=== PATIENT | female | born 1990 | race Caucasian/White ===

== ENCOUNTER 2022-09-13 10:37 | Emergency (ER) | payer OTHER, SELFPAY ==
--- NOTE | 2022-09-13 10:38 | ED.EYEPROB ---
HPI - Eye Problem General Chief complaint: Eye Problems Stated complaint: COLD/EYE REDNESS/DISCHARGE Time Seen by Provider: 09/13/22 10:39 Source: patient and RN notes reviewed History of Present Illness HPI Narrative: Patient is a 31-year-old female presents to urgent care with complaints of bilateral eye redness, discharge and itchiness. Patient states that it started yesterday but she has had cold-like symptoms with cough and runny nose for 3 days. Patient has been taking Sudafed for symptom relief. Denies any new products to the face. Denies any eye injury. Patient states that she does not were contacts. Denies any vision change. No other acute complaints. No acute distress noted. Patient aware of the plan of care. Some parts of this dictation were generated by voice recognition software and may contain typographical and/or grammatical inaccuracies. Related Data Home Medications Medication Instructions Recorded Confirmed buspirone 5 mg tablet 5 mg PO TID 09/13/22 09/13/22 rosuvastatin 5 mg tablet 5 mg PO DAILY 09/13/22 09/13/22 valacyclovir 1 gram tablet 1,000 mg PO DAILY 09/13/22 09/13/22 Allergies Allergy/AdvReac Type Severity Reaction Status Date / Time sulfamethoxazole Allergy Rash Verified 09/13/22 10:57 [From Bactrim] trimethoprim [From Bactrim] Allergy Rash Verified 09/13/22 10:57 Review of Systems Review of Systems: CONSTITUTIONAL: Denies fever, chills, or sweats. EYES: Reports bilateral eye discharge, redness and itchiness ENT: Reports of nasal congestion, rhinorrhea and postnasal drainage CARDIOVASCULAR: Denies chest pain, palpitations, or edema. RESPIRATORY: Reports cough without dyspnea GASTROINTESTINAL: Denies abdominal pain, nausea, vomiting, or diarrhea. GENITOURINARY: Denies dysuria or hematuria. SKIN: Denies rash or itching. MUSCULOSKELETAL: Denies back pain, joint pain, or myalgia. NEUROLOGIC: Denies headache, numbness, or weakness. All other systems reviewed are negative, except as documented in HPI. PMFSH Comments At the time of my signature, I reviewed and agree with the nursing past medical, surgical, social, and family history. There is no relevant family history pertinent to the patient complaint. Exam Narrative: GENERAL: This is a well-nourished, well-developed patient, in no apparent distress. HEAD: normocephalic, atraumatic. EYES: PERRL. Mild erythema to bilateral Sclera. Vision is grossly intact. Mild injected conjunctiva bilaterally with clear yellow drainage more notable to the left. Mild left upper eyelid edema/erythema EARS: External ears normal, auditory canals clear and without drainage, TMs normal without perforation. Hearing grossly intact. NOSE: External nose normal with no obvious nasal discharge, nares without redness, clear rhinorrhea. THROAT: Mucous membranes moist, posterior pharynx clear. Mild postnasal drainage NECK: Neck supple RESPIRATORY: Clear to auscultation. Breath sounds equal bilaterally. No wheezes, rales, or rhonchi. GASTROINTESTINAL: Abdomen soft, non-tender, nondistended. Bowel sounds are active. No hepato-splenomegaly, or palpable masses. No guarding. SKIN: warm, intact with no suspicious lesions or rash, good texture and turgor. NEURO: awake, alert, and oriented to person, place and time. There were no obvious focal neurologic abnormalities. EXTREMITIES: No clubbing, cyanosis, or edema. Course Course Level of Care: Express Care Visit Vital Signs Vital signs: Vital Signs Oxygen Delivery Room Air 09/13/22 10:45 Temperature 97.6 F 09/13/22 10:46 Pulse Rate 100 09/13/22 10:46 Respiratory Rate 20 09/13/22 10:46 Blood Pressure 124/85 09/13/22 10:46 Pulse Oximetry 100 09/13/22 10:46 Oxygen Delivery Room Air 09/13/22 10:45 Reviewed MDM - Eye Problem MDM Narrative Medical decision making narrative: Advised patient to use a daily antihistamine such as Zyrtec or Claritin. Complete the prednisone as directed.
[2022-09-13 10:46] VITALS: BP 124/85; PULSE 100; RESP 20; TEMP 36.4; O2SAT 100
== END 2022-09-13 11:18 | disposition home or self-care (01) ==
PROVIDERS: Emergency Provider Nurse Practitioner Family
DX: H10.9 Unspecified conjunctivitis (principal); J00 Acute nasopharyngitis [common cold]
CPT/HCPCS: 99213; G0463